=== PATIENT | female | born 1990 | race Caucasian/White ===

== ENCOUNTER 2018-04-24 09:32 | Emergency (ER) | payer OTHER ==
[~2018-04-24 09:32] MED LIST: ACET-3017 PO; CEP500 PO; CLIN300C99 PO; CODE118S5 PO; DOXY150T6 PO; DOXY50SY2 PO; GABA-490 PO; GABA300S PO; HYDR-4309 PO; KET10 PO; LOR5 PO; LOR5/325 PO; MET10 PO; METR-1 PO; NO MEDS; ONDA-2 PO; ONDA4TAB PO; OXYC-373 PO; OXYC-865 PO; PER PO; PRED20TA6 PO; PREN1COM5 PO; PRO25 PO; PROM-110 PO
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
[2018-04-24 10:19] VITALS: BP 124/73
== END 2018-04-24 10:21 | disposition home or self-care (01) ==
LOC: ER 09:42
DX: S83.92XA Sprain of unspecified site of left knee, initial encounter (principal)
CPT/HCPCS: 99282

== ENCOUNTER 2019-01-27 18:10 | Emergency (ER) | payer SELFPAY ==
[~2019-01-27 18:10] MED LIST changes: -HYDR-4309 PO; +HYDR-653 PO
--- NOTE | 2019-01-27 18:16 | ER Report ---
History and Physical Time Seen By MD: 18:14 HPI/ROS CHIEF COMPLAINT: dizziness and cough HISTORY OF PRESENT ILLNESS: This is a 28 year old female. She has been feeling like she has been getting sick for a few days. Has a mild cough and runny nose, but cough seems worse after waking up this afternoon to go to work. Also felt dizzy and almost passed out. No nausea or vomiting. No fevers or chills. Normal bowels without diarrhea. No chest pain. Difficult to cough, makes here head hurt worse and dizziness worse with coughing. No vertigo, but dizziness is more of a near syncope type. No musculoskeletal pain. Allergies: Coded Allergies: Penicillins (Verified Allergy, Unknown, 01/27/19) ketorolac (Verified Allergy, Unknown, 01/27/19) tramadol (Verified Allergy, Unknown, 01/27/19) Home Meds Active Scripts Benzonatate 100 Mg Cap (TESSALON PERLE 100 MG CAP) 100 Mg Capsule, 100 MG PO TID PRN for COUGH, #15 CAP 0 Refills Prov:ROMEL WRIGHT MD 01/27/19 Reviewed Nurses Notes: Yes Hx Smoking: Yes Smoking Status: Current: Every Day Smoker Exposure to Second Hand Smoke?: Yes Hx Substance Use Disorder: No Hx Alcohol Use: No Constitutional Vital Sign - Last 24 Hours 01/27/19 01/27/19 01/27/19 01/27/19 18:14 18:30 18:35 18:37 Temp 98.2 Pulse 69 71 Resp 20 B/P (MAP) 127/58 115/78 (90) 102/61 (75) 109/61 (77) Pulse Ox 91 88 O2 Delivery Room Air 01/27/19 01/27/19 18:39 19:00 Pulse 62 B/P (MAP) 111/65 (80) 114/65 (81) Pulse Ox 88 Physical Exam General Appearance: The patient is alert. No acute distress. Eyes: Pupils are equal, round. No pallor, injection or icterus. ENT: Mucous membranes are moist. Normal oral mucosa. Posterior oropharynx has mild erythema. Neck: Supple and non tender. Respiratory: Lungs with rhonchi. Cardiovascular: Regular rate and rhythm. No murmurs, gallops or rubs. Normal capillary refill. Gastrointestinal: Abdomen is soft and non tender. Nondistended. Normal active bowel sounds. Neurological: Alert and oriented x3. Skin: Warm and dry. Musculoskeletal: Extremities are nontender. Full range of motion. No chest wall tenderness. DIFFERENTIAL DIAGNOSIS: After history and physical exam, differential diagnosis was considered for cough and dizziness Medical Decision Making Data Points Result Diagram: 01/27/195 01/27/195 Laboratory Hematology Test 01/27/19 18:55 White Blood Count 8.0 k/uL (4.5-11.0) Red Blood Count 4.19 M/uL (4.17-5.56) Hemoglobin 14.0 g/dL (12.0-16.0) Hematocrit 39.5 % (34.0-47.0) Mean Corpuscular Volume 94.3 fL (80.0-96.0) Mean Corpuscular Hemoglobin 33.4 pg (26.0-33.0) H Mean Corpuscular Hemoglobin Concent 35.4 g/dL (32.0-36.0) Red Cell Distribution Width 13.2 % (11.5-14.5) Platelet Count 255 K/uL (150-450) Mean Platelet Volume 7.1 fL (7.2-11.1) L Neutrophils (%) (Auto) 56.5 % (39.4-72.5) Lymphocytes (%) (Auto) 30.3 % (17.6-49.6) Monocytes (%) (Auto) 7.5 % (4.1-12.4) Eosinophils (%) (Auto) 4.6 % (0.4-6.7) Basophils (%) (Auto) 1.1 % (0.3-1.4) Nucleated RBC Relative Count (auto) 0.1 /100WBC Neutrophils # (Auto) 4.5 K/uL (2.0-7.4) Lymphocytes # (Auto) 2.4 K/uL (1.3-3.6) Monocytes # (Auto) 0.6 K/uL (0.3-1.0) Eosinophils # (Auto) 0.4 K/uL (0.0-0.5) Basophils # (Auto) 0.1 K/uL (0.0-0.1) Nucleated RBC Absolute Count (auto) 0.01 K/uL Chemistry Test 01/27/19 18:55 Sodium Level 143 mmol/L (137-145) Potassium Level 3.9 mmol/L (3.5-5.0) Chloride Level 107 mmol/L (98-107) Carbon Dioxide Level 27 mmol/L (22-31) Blood Urea Nitrogen 10 mg/dl (7-18) Creatinine 1.00 mg/dl (0.52-1.04) Glomerular Filtration Rate Calc > 60.0 Random Glucose 84 mg/dl (75-110) Calcium Level 9.0 mg/dl (8.4-10.2) Total Bilirubin 0.2 mg/dl (0.2-1.3) Aspartate Amino Transf (AST/SGOT) 21 U/L (0-35) Alanine Aminotransferase (ALT/SGPT) 30 U/L (0-56) Alkaline Phosphatase 62 U/L (0-126) Total Protein 6.4 g/dl (6.3-8.2) Albumin 3.8 g/dl (3.5-5.0) EKG/Imaging Imaging Examination: CHEST PA LAT Comparison: 12/02/2014. History: cough Findings: Cardiac and hilar contour size is normal. No consolidation, nodule, or peribronchial inflammation. No pneumothorax, edema, or effusion. Visualized bowel gas pattern is unremarkable. Cholecystectomy clips. Osseous structures are intact. IMPRESSION: Negative chest. Report Dictated By: Tony Dumont MD at 01/27/2019 7:04 PM ED Course/Re-evaluation Clinical Indication for ER IV: Hydration, IV Access ED Course Imaging and labs unremarkable. Appears to be viral upper respiratory infection. Benzonatate given to help with cough. Decision to Disposition Date: Jan 27, 2019 Decision to Disposition Time: 19:18 Depart Departure Latest Vital Signs Vital Signs Date Time Temp Pulse Resp B/P (MAP) Pulse Ox O2 Delivery O2 Flow Rate FiO2 01/27/19 19:00 62 114/65 (81) 88 01/27/19 18:14 98.2 20 Room Air Impression: Primary Impression: Viral upper respiratory infection Condition: Condition Unchanged Disposition: HOME OR SELF-CARE New Scripts Benzonatate 100 Mg Cap (TESSALON PERLE 100 MG CAP) 100 Mg Capsule 100 MG PO TID PRN for COUGH, #15 CAP 0 Refills Prov: ROMEL WRIGHT MD 01/27/19 Patient Instructions: Upper Respiratory Infection (ED) Additional Instructions: Rest and increased fluid intake. Take Benzonatate 100mg capsules, three times a day as needed for cough. You can also try over the counter cold and cough medicines. Tylenol or Ibuprofen as needed for pain. ROMEL WRIGHT MD Jan 27, 2019 18:16
[2019-01-27] MEDS ORDERED: NS(*) 0.9% 1000 ML BAG 1,000 ML IV ONE (18:35)
[2019-01-27 19:00] VITALS: BP 114/65
[2019-01-27 19:05] LABS: PLATELET COUNT, AUTOMATED 255 K/uL (150-450)
--- NOTE | 2019-01-27 19:12 | RADIOLOGY IMAGING REPORT ---
FACILITY: [facility] - [place] PATIENT NAME: Khushi Velasco : 1990 MR: [id number] V: [id number] EXAM DATE: ORDERING PHYSICIAN: ROMEL WRIGHT TECHNOLOGIST: Location: [facility] - [place] Patient: Khushi Velasco : 1990 Visit/Account:[id number] Date of Sevice: 01/27/2019 Examination: CHEST PA LAT Comparison: 12/02/2014. History: cough Findings: Cardiac and hilar contour size is normal. No consolidation, nodule, or peribronchial inflam mation. No pneumothorax, edema, or effusion. Visualized bowel gas pattern is unremarkable. Cholecyste ctomy clips. Osseous structures are intact. IMPRESSION: Negative chest. Report Dictated By: Tony Dumont MD at 01/27/2019 7:04 PM Report E-Signed By: Tony Dumont MD at 01/27/2019 7:06 PM [id number]
[2019-01-27] MEDS ORDERED: BENZONATATE 100 MG CAP PO ONE (19:20)
[2019-01-27] MEDS ORDERED: BENZ100C4 PO (19:21)
== END 2019-01-27 19:32 | disposition home or self-care (01) ==
LOC: ER 18:21
DX: J06.9 Acute upper respiratory infection, unspecified (principal)
CPT/HCPCS: 71046; 85025; 96360; 99283; J7030; 82040; 82247; 82310; 82374; 82435; 82565; 82947; 84075; 84132; 84155; 84295; 84450; 84460; 84520